=== PATIENT | female | born 1950 | race African-American/Black ===

== ENCOUNTER 2017-05-18 11:20 | Inpatient (IN) | payer MEDICARE, MEDICAID, OTHER ==
[~2017-05-18] VITALS: Ht 154.9 cm; Wt 73.9 kg
[~2017-05-18 11:20] MED LIST: ANUSOL HC1 SUPP RECTAL; ASPIR 8181 MG ORAL; ATROVENT HFA12.9 GM IH; COLACE100 MG ORAL; FLOVENT2 PUFF1 INH; FLUTICASONE PRO16 G1 NASAL; HYDROCHLOROTHIA25 MG ORAL; LANTUS SOL100 UNIT/1 SUBQ; LIDOCAINE15 GM TP; LORATADINE10 M1 PO; NAPROXEN375 MG ORAL; PANTOPRAZOLE SO40 MG ORAL; PAROXETINE HCL10 MG ORAL; TRAZODONE HCL150 MG ORAL; VALIUM10 MG ORAL; VENTOLIN HFA18 GM INH; ZANTAC150 MG ORAL
[2017-05-18 12:05] VITALS: BP 143/87
[2017-05-18 12:19] LABS: BASOPHILS % (AUTO) 1.1 % (0.0-2.0); EOSINOPHILS % (AUTO) 0.5 % (0.0-3.0); LYMPHOCYTES % (AUTO) 48.9 % (20.0-45.0); MEAN CORPUSCULAR HEMOGLOBIN 27.3 PG (27.0-31.0); MEAN CORPUSCULAR VOLUME 88 FL (80-99); MONOCYTES % (AUTO) 7.7 % (1.0-10.0); NEUTROPHILS % (AUTO) 41.8 % (45.0-75.0); PLATELET COUNT 363 K/UL (150-450); RED BLOOD COUNT 4.97 M/UL (4.20-5.40); RED CELL DISTRIBUTION WIDTH 13.8 % (11.6-14.8)
[2017-05-18] MEDS ORDERED: ALPRAZolam 0.5mg tab ORAL ONE (12:30)
[2017-05-18 12:34] LABS: TROPONIN I < 0.30 ng/mL (<=0.30)
[2017-05-18 12:37] LABS: ALANINE AMINOTRANSFERASE 7 U/L (3-33); ALBUMIN/GLOBULIN RATIO 1.2 (1.0-2.7); ANION GAP 9 (5-15); ASPARTATE AMINO TRANSFERASE 10 U/L (5-40); CALCIUM 9.7 mg/dL (8.6-10.2); CARBON DIOXIDE 30 mEQ/L (20-30); CHLORIDE 94 mEQ/L (98-107); CREATININE 0.8 mg/dL (0.5-0.9); GLOMERULAR FILTRATION RATE > 60 mL/min (>60); HEMOLYSIS 4; POTASSIUM 4.3 mEQ/L (3.4-4.9); SODIUM 133 mEQ/L (135-145); TOTAL PROTEIN 8.2 g/dL (6.6-8.7)
[2017-05-18] MEDS ORDERED: LORazepam Inj 2mg/ml 1ml IV ONE (12:45)
[2017-05-18 12:48] LABS: CKMB < 1.5 ng/mL (< 3.8)
--- NOTE | 2017-05-18 12:48 | Diagnostic Imaging Report ---
Indication: Right-sided facial numbness Technique: Contiguous 5 mm thick transaxial imaging of the head obtained in a Siemens Sensation [address] scanner. Soft tissue and bone windows generated. Total Dose length Product (DLP): [address] Dose Index Volume (CTDIvol): 70.38, 0.15 mGy Comparison: none Findings: There is mild prominence of the ventricles, basal cisterns, and cerebral sulci consistent with atrophy. Mild, nonspecific, white matter hypoattenuation is noted throughout the brain consistent with chronic small vessel disease. There is no midline shift, edema, acute hemorrhage, mass effect, or abnormal extra-axial fluid collections. Bones and extra osseous soft tissues are unremarkable. Impression: No acute intracranial bleed, mass effect or edema. Mild atrophy of the brain. Nonspecific white matter hypoattenuation probably due to chronic small vessel disease. The CT scanner at [facility] is accredited by the [employer] and the scans are performed using dose optimization techniques as appropriate to a performed exam including Automatic Exposure control.
[2017-05-18 14:10] VITALS: BP 147/84
--- NOTE | 2017-05-18 14:39 | Emergency Room Report ---
History of Present Illness General Chief Complaint: General Complaint Source: Patient, Medical Record Present Illness HPI 66-year-old female presents to ED for evaluation. States that she is having a facial droop on the left side the last 3 days. Patient has history of PTSD and believes that the facial droop could be due to her anxiety but states that it persisted longer than normal she came in today. Patient states that she also feels that her left arm is weak. Denies any chest pain or shortness of breath. Denies any headaches. No aggravating relieving factors. Denies any other associated symptoms Allergies: Coded Allergies: No Known Allergies (Unverified , 12/17/16) Patient History Past Medical History: DM, asthma, psych hx Past Surgical History: none Pertinent Family History: none Social History: Denies: smoking, alcohol use, drug use Now: No Immunizations: UTD Reviewed Nursing Documentation: PMH: Agreed, PSxH: Agreed Nursing Documentation-PMH Past Medical History: No History, Except For Hx Asthma: Yes Hx Diabetes: Yes History Of Psychiatric Problem: Yes - PTSD Review of Systems All Other Systems: negative except mentioned in HPI Physical Exam Vital Signs Date Time Temp Pulse Resp B/P (MAP) Pulse Ox O2 Delivery O2 Flow Rate FiO2 05/18/17 11:22 97.9 80 18 148/83 96 Room Air Sp02 EP Interpretation: reviewed, normal General Appearance: no apparent distress, alert, GCS 15, non-toxic Head: normocephalic, atraumatic Eyes: bilateral eye normal inspection, bilateral eye PERRL ENT: hearing grossly normal, normal pharynx, no angioedema, normal voice Neck: full range of motion, supple/symm/no masses Respiratory: chest non-tender, lungs clear, normal breath sounds, speaking full sentences Cardiovascular #1: regular rate, rhythm, no edema Cardiovascular #2: 2+ carotid (R), 2+ carotid (L), 2+ radial (R), 2+ radial (L) , 2+ dorsalis pedis (R), 2+ dorsalis pedis (L) Gastrointestinal: normal bowel sounds, non tender, soft, non-distended, no guarding, no rebound Rectal: deferred Genitourinary: normal inspection, no CVA tenderness Musculoskeletal: back normal, gait/station normal, normal range of motion, non- tender Neurologic: alert, oriented x3, responsive, motor strength/tone normal, sensory intact, speech normal, facial droop Psychiatric: judgement/insight normal, memory normal, no suicidal/homicidal ideation, anxious Reflexes: 3+ bicep (R), 3+ bicep (L), 3+ tricep (R), 3+ tricep (L), 3+ knee (R) , 3+ knee (L) Skin: normal color, no rash, warm/dry, well hydrated Lymphatic: no adenopathy Medical Decision Making Diagnostic Impression: Primary Impression: Stroke-like symptom Additional Impression: Facial droop ER Course Hospital Course 66-year-old female presents with facial droop, left arm weakness x3 days Differential diagnoses include: MN/unstable angina, SVT/Vtach/AFib, CVA/TIA Clinical course Patient placed on stretcher. on playground monitor. After initial history and physical I ordered labs, EKG, chest x-ray, and CT head labs reviewed- electrolytes ok, troponins negative, no leukocytosis, Hb/Hct stable EKG - NSR, no acute changes intperreted by me CT brain - no acute process noted Patient has been given Ativan without any resolution of symptoms. Given patient 's age and risk factors I believe patient should be admitted for further workup to rule out stroke Symptoms have been persisting for 3 days, therefore patient is out of any therapeutic window for thrombolytic therapy Given aspirin in ED. Case discussed with Dr. Mao and he agreed to accept the patient to his service for further care and support I. I feel this is a highly complex case requiring extensive working including EKG/Rhythm strip, Xray/CT/US, Blood/urine lab work, repeat exams while in ED, and administration of strong opiates/narcotics for pain control, admission to hospital or close patient follow up. Diagnosis - stroke like episode, facial droop admitted to telemetry in serious condition Labs Test 05/18/17 12:00 White Blood Count 7.0 K/UL (4.8-10.8) Red Blood Count 4.97 M/UL (4.20-5.40) Hemoglobin 13.6 G/DL (12.0-16.0) Hematocrit 43.9 % (37.0-47.0) Mean Corpuscular Volume 88 FL (80-99) Mean Corpuscular Hemoglobin 27.3 PG (27.0-31.0) Mean Corpuscular Hemoglobin Concent 31.0 G/DL (32.0-36.0) Red Cell Distribution Width 13.8 % (11.6-14.8) Platelet Count 363 K/UL (150-450) Mean Platelet Volume 5.0 FL (6.5-10.1) Neutrophils (%) (Auto) 41.8 % (45.0-75.0) Lymphocytes (%) (Auto) 48.9 % (20.0-45.0) Monocytes (%) (Auto) 7.7 % (1.0-10.0) Eosinophils (%) (Auto) 0.5 % (0.0-3.0) Basophils (%) (Auto) 1.1 % (0.0-2.0) Sodium Level 133 mEQ/L (135-145) Potassium Level 4.3 mEQ/L (3.4-4.9) Chloride Level 94 mEQ/L (98-107) Carbon Dioxide Level 30 mEQ/L (20-30) Anion Gap 9 (5-15) Blood Urea Nitrogen 7 mg/dL (7-23) Creatinine 0.8 mg/dL (0.5-0.9) Estimat Glomerular Filtration Rate > 60 mL/min (>60) Glucose Level 303 mg/dL (74-106) Calcium Level 9.7 mg/dL (8.6-10.2) Total Bilirubin 0.2 mg/dL (0.0-1.2) Aspartate Amino Transf (AST/SGOT) 10 U/L (5-40) Alanine Aminotransferase (ALT/SGPT) 7 U/L (3-33) Alkaline Phosphatase 80 U/L (35-104) Total Creatine Kinase 75 U/L (26-140) Creatine Kinase MB < 1.5 ng/mL (< 3.8) Creatine Kinase MB Relative Index 2.0 Troponin I < 0.30 ng/mL (<=0.30) Total Protein 8.2 g/dL (6.6-8.7) Albumin 4.5 g/dL (3.5-5.2) Globulin 3.7 g/dL Albumin/Globulin Ratio 1.2 (1.0-2.7) EKG Diagnostic Results Rate: normal Rhythm: NSR ST Segments: no acute changes ASA given to the pt in ED: No Rhythm Strip Diag. Results EP Interpretation: yes Rhythm: NSR, no PVC's, no ectopy CT/MRI/US Diagnostic Results CT/MRI/US Diagnostic Results : Imaging Test Ordered: CT Head Impression no acute process Last Vital Signs Date Time Temp Pulse Resp B/P (MAP) Pulse Ox O2 Delivery O2 Flow Rate FiO2 05/18/17 14:10 97.8 79 14 147/84 98 Room Air Status: improved Disposition: ADMITTED INPATIENT Condition: Serious Referrals: NON PHYSICIAN (PCP) AVNI KANG M.D. May 18, 2017 14:39
[2017-05-18 15:35] LABS: APPEARANCE,URINE CLEAR; KETONES,URINE NEGATIVE (NEGATIVE); LEUKOCYTE ESTERASE ,URINE NEGATIVE (NEGATIVE); NITRITE,URINE NEGATIVE (NEGATIVE); PH,URINE 6 (4.5-8.0); PROTEIN,URINE NEGATIVE (NEGATIVE); UROBILINOGEN,URINE NORMAL MG/DL (0.0-1.0)
--- NOTE | 2017-05-18 16:33 | History and Physical ---
History of Present Illness General Date patient seen: May 18, 2017 Time patient seen: 16:32 Reason for Hospitalization: facial droop Present Illness HPI 66yo female with pmh of DM2, HTN, PTSD, tobacco abuse presents with L facial droop. States that she is having a facial droop on the left side the last 3 days. Patient has history of PTSD and believes that the facial droop could be due to her anxiety but states that it persisted longer than normal she came in today. Patient states that she also feels that her left arm is weak. Denies f/c , n/v, d/c, chest pain, SOB, abd pain, dysuria, numbness/tingling. In ED, pt had CT head which was negative Allergies: Coded Allergies: No Known Allergies (Unverified , 12/17/16) Medication History Scheduled Albuterol Sulfate (Ventolin Hfa), 2 PUFFS INH EVERY 6 HOURS, (Reported) Aspirin* (Aspir 81*), 81 MG ORAL DAILY, (Reported) Docusate Sodium* (Colace*), 250 MG ORAL TWICE A DAY, (Reported) Fluticasone Propionate (Flovent Hfa), 1 PUFFS INH BID, (Reported) Fluticasone Propionate* (Fluticasone Propionate*), 1 SPRAY NASAL DAILY, ( Reported) Hydrochlorothiazide* (Hydrochlorothiazide*), 25 MG ORAL DAILY, (Reported) Insulin Glargine (Lantus), 10 SUBQ BEDTIME, (Reported) Loratadine (Loratadine), 10 MG PO daily, (Reported) Naproxen* (Naprosyn*), 375 MG ORAL TWICE A DAY, (Reported) Pantoprazole* (Pantoprazole*), 40 MG ORAL DAILY, (Reported) Paroxetine Hcl* (Paxil*), 30 MG ORAL hs, (Reported) Trazodone* (Trazodone*), 150 MG ORAL BEDTIME, (Reported) Scheduled PRN Diazepam* (Valium*), 10 MG ORAL bid PRN for ANXIETY, (Reported) Hydrocortisone (Anucort-Hc), 25 MG RECTAL QD PRN for Breakthrough Pain, ( Reported) Ipratropium [place] (Atrovent Hfa), 12.9 GM IH Q6H PRN for Bronchospasm, ( Reported) Patient History History Provided By: Patient, Medical Record Healthcare decision maker Resuscitation status Advanced Directive on File Family History Family History: CVA Social History Social History: (1) Tobacco abuse Review of Systems Constitutional: Reports: weakness Eye: Reports: no symptoms ENT: Reports: no symptoms Respiratory: Reports: no symptoms Cardiovascular: Reports: no symptoms Gastrointestinal: Reports: no symptoms Genitourinary: Reports: no symptoms Musculoskeletal: Reports: no symptoms Skin: Reports: no symptoms Psychiatric: Reports: no symptoms Endocrine: Reports: no symptoms Hematologic/Lymphatic: Reports: no symptoms Physical Exam Physical Exam Narrative General: alert, cooperative, no distress, appears stated age Head: normocephalic, without obvious abnormality, atraumatic Eyes: conjunctivae/corneas clear. PERRL, EOM's intact Throat: lips, mucosa, and tongue normal. MMM Neck: supple, symmetrical, trachea midline, and no JVD Lungs: clear to auscultation bilaterally Heart: regular rate and rhythm, S1, S2 normal, no murmur, click, rub or gallop Abdomen: soft, non-tender, non-distended, bowel sounds normal; no masses or organomegaly Extremities: extremities normal, atraumatic, no cyanosis or edema Pulses: 2+ and symmetric Skin: skin color, texture, turgor normal; no rashes or lesions Neurologic: grossly normal, no focal deficits Last 24 Hour Vital Signs Date Time Temp Pulse Resp B/P (MAP) Pulse Ox O2 Delivery O2 Flow Rate FiO2 05/18/17 14:10 97.8 79 14 147/84 98 Room Air 05/18/17 12:05 97.9 82 15 143/87 97 Room Air 05/18/17 11:22 97.9 80 18 148/83 96 Room Air Intake and Output 05/18/17 05/19/17 19:00 07:00 Intake Total 500 ml Balance 500 ml Intake IV Total 500 ml Laboratory Tests Test 05/18/17 12:00 05/18/17 15:07 White Blood Count 7.0 K/UL (4.8-10.8) Red Blood Count 4.97 M/UL (4.20-5.40) Hemoglobin 13.6 G/DL (12.0-16.0) Hematocrit 43.9 % (37.0-47.0) Mean Corpuscular Volume 88 FL (80-99) Mean Corpuscular Hemoglobin 27.3 PG (27.0-31.0) Mean Corpuscular Hemoglobin Concent 31.0 G/DL (32.0-36.0) L Red Cell Distribution Width 13.8 % (11.6-14.8) Platelet Count 363 K/UL (150-450) Mean Platelet Volume 5.0 FL (6.5-10.1) L Neutrophils (%) (Auto) 41.8 % (45.0-75.0) L Lymphocytes (%) (Auto) 48.9 % (20.0-45.0) H Monocytes (%) (Auto) 7.7 % (1.0-10.0) Eosinophils (%) (Auto) 0.5 % (0.0-3.0) Basophils (%) (Auto) 1.1 % (0.0-2.0) Sodium Level 133 mEQ/L (135-145) L Potassium Level 4.3 mEQ/L (3.4-4.9) Chloride Level 94 mEQ/L (98-107) L Carbon Dioxide Level 30 mEQ/L (20-30) Anion Gap 9 (5-15) Blood Urea Nitrogen 7 mg/dL (7-23) Creatinine 0.8 mg/dL (0.5-0.9) Estimat Glomerular Filtration Rate > 60 mL/min (>60) Glucose Level 303 mg/dL (74-106) H Calcium Level 9.7 mg/dL (8.6-10.2) Total Bilirubin 0.2 mg/dL (0.0-1.2) Aspartate Amino Transf (AST/SGOT) 10 U/L (5-40) Alanine Aminotransferase (ALT/SGPT) 7 U/L (3-33) Alkaline Phosphatase 80 U/L (35-104) Total Creatine Kinase 75 U/L (26-140) Creatine Kinase MB < 1.5 ng/mL (< 3.8) Creatine Kinase MB Relative Index 2.0 Troponin I < 0.30 ng/mL (<=0.30) Total Protein 8.2 g/dL (6.6-8.7) Albumin 4.5 g/dL (3.5-5.2) Globulin 3.7 g/dL Albumin/Globulin Ratio 1.2 (1.0-2.7) Urine Color Pale yellow Urine Appearance Clear Urine pH 6 (4.5-8.0) Urine Specific [place] 1.015 (1.005-1.035) Urine Protein Negative (NEGATIVE) Urine Glucose (UA) 4+ (NEGATIVE) H Urine Ketones Negative (NEGATIVE) Urine Occult Blood Negative (NEGATIVE) Urine Nitrite Negative (NEGATIVE) Urine Bilirubin Negative (NEGATIVE) Urine Urobilinogen Normal MG/DL (0.0-1.0) Urine Leukocyte Esterase Negative (NEGATIVE) Height (Feet): 5 Height (Inches): 1.00 Weight (Pounds): 163 Assessment/Plan Problem List: (1) Facial droop ICD Codes: R29.810 - Facial weakness SNOMED: 32376681 (2) DM2 (diabetes mellitus, type 2) ICD Codes: E11.9 - Type 2 diabetes mellitus without complications SNOMED: 45779906 (3) HTN (hypertension) ICD Codes: I10 - Essential (primary) hypertension SNOMED: 57643382 (4) PTSD (post-traumatic stress disorder) ICD Codes: F43.10 - Post-traumatic stress disorder, unspecified SNOMED: 59928721 (5) Tobacco abuse ICD Codes: Z72.0 - Tobacco use SNOMED: 85972073, 363230013 Status: stable Assessment/Plan Admit inpt Neurology consulted Check MRI brain Check A1C, lipid panel, TSH, B12/folate, Vit D ASA 325mg daily, Statin TITO Cont other home meds DVT Prophylaxis: SCD, HSQ Code Status: Full Hospital Classification Declaration: Based on this initial evaluation, and depending on the patient's clinical course, I anticipate that this patient will require hospitalization for 2-3 days for concern for CVA and close respiratory/ hemodynamic monitoring. Disposition: Once the patient is stable to leave the hospital, I anticipate the patient will likely be discharged to the following environment: home with HH vs SNF I spent 70 minutes on this patient's case, and 37 minutes were dedicated to counseling and/or care coordination. Discussed with patient/family, nursing staff, SW/STEVEN, neurology regarding clinical status, treatment course, and disposition planning. Time of note may not reflect time of encounter. Robbie Ng M.D. May 18, 2017 16:33
[2017-05-18 16:40] VITALS: BP 127/68
[2017-05-18] MEDS ORDERED: Acetaminophen 650 MG SUPP RECTAL PRN (17:00)
[2017-05-18] MEDS ORDERED: DuoNeb 0.5-3(2.5)mg/3ml neb HHN PRN (17:00)
[2017-05-18] MEDS ORDERED: Miralax 17gm pkt ORAL PRN (17:00)
[2017-05-18 17:41] VITALS: BP 132/64
[2017-05-18 18:17] VITALS: BP 136/90
[2017-05-18] MEDS: Flovent 44mcg Inhaler 10.6gm INH SCH (18:30)
--- NOTE | 2017-05-18 19:37 | Consultation ---
Consult Note Consult Note NEUROLOGY CONSULTATION: Full note dictated #[id number] 66 y/o, RH, BF with PH of HTN, DM, DL, PTSD, Anxiety, prior episodes of left face weakness associated with anxiety and responsive to ASA 81 mg. She has had a left facial droop for the last 3 days and thus presented [place] [facility]. A CT of the brain was benign. ON EXAM: Left NLF flattening. C/O subjective alteration of sensation over left V2 IMPRESSION: Left facial weakness and altered sensation - unexplained. REC: Agree with Brain MRI Carotid duplex W/U for possible CVD BP/BS/Lipid control ASA 81 mg q day. Rx of anxiety Observe Jane Leblanc M.D., M.S.P.H. JANE LEBLANC May 18, 2017 19:37
[2017-05-18 20:00] VITALS: BP 125/81
[2017-05-18] MEDS: LORazepam Inj 2mg/ml 1ml IV PRN (20:55)
[2017-05-18] MEDS: TraZODone 50mg tab ORAL SCH (20:57)
[2017-05-18] MEDS: PARoxetine 20mg tab ORAL SCH (20:58)
[2017-05-18] MEDS: Docusate 100mg cap ORAL SCH (20:58)
[2017-05-18] MEDS: Heparin 5000 units/ml inj SUBQ SCH (21:00)
[2017-05-18] MEDS: NovoLOG Insulin Flexpen SUBQ SCH (21:01)
[2017-05-19] VITALS: BP_SYST 117; BP_SYST 124; BP_DIAS 70; BP_DIAS 80
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
[2017-05-19 04:00] VITALS: BP 120/59
[2017-05-19] MEDS: NovoLOG Insulin Flexpen SUBQ SCH ×4 (06:19→21:19)
[2017-05-19 06:47] LABS: EOSINOPHILS % (AUTO) 1.7 % (0.0-3.0); LYMPHOCYTES % (AUTO) 51.9 % (20.0-45.0); MEAN CORPUSCULAR HEMOGLOBIN 29.1 PG (27.0-31.0); MEAN CORPUSCULAR HGB CONC 32.9 G/DL (32.0-36.0); MEAN CORPUSCULAR VOLUME 89 FL (80-99); MEAN PLATELET VOLUME 5.4 FL (6.5-10.1); MONOCYTES % (AUTO) 8.6 % (1.0-10.0); NEUTROPHILS % (AUTO) 36.8 % (45.0-75.0); PLATELET COUNT 331 K/UL (150-450); RED BLOOD COUNT 4.49 M/UL (4.20-5.40); RED CELL DISTRIBUTION WIDTH 13.8 % (11.6-14.8); WHITE BLOOD COUNT 6.5 K/UL (4.8-10.8)
[2017-05-19 06:58] LABS: HEMOGLOBIN A1C 9.2 % (< 6.0)
[2017-05-19 07:25] LABS: ANION GAP 11 (5-15); CALCIUM 9.3 mg/dL (8.6-10.2); CARBON DIOXIDE 28 mEQ/L (20-30); CHLORIDE 100 mEQ/L (98-107); CHOLESTEROL 222 mg/dL (< 200); CHOLESTEROL/HDL RATIO 4.9 (3.3-4.4); CREATININE 0.8 mg/dL (0.5-0.9); GLOMERULAR FILTRATION RATE > 60 mL/min (>60); HEMOLYSIS 4; LDL CHOLESTEROL (CALC.) 142 mg/dL (60-99); POTASSIUM 4.5 mEQ/L (3.4-4.9); SODIUM 139 mEQ/L (135-145)
[2017-05-19 07:50] VITALS: BP 127/84
[2017-05-19] MEDS ORDERED: Flonase Nasal Inhaler 16gm NASAL SCH (09:00)
[2017-05-19] MEDS: Docusate 100mg cap ORAL SCH ×2 (09:35→21:13)
[2017-05-19] MEDS: Aspirin EC 325mg tab ORAL SCH (09:35)
[2017-05-19] MEDS: Heparin 5000 units/ml inj SUBQ SCH ×2 (09:38→21:17)
--- NOTE | 2017-05-19 10:07 | Diagnostic Imaging Report ---
Indication: Left facial droop and weakness Technique: The head was imaged in a 1.5 Meredith magnet. Sequences obtained include sagittal and axial T1 FLAIR, axial T2 fast spin echo with fat saturation, axial T2 FLAIR, diffusion and ADC map. Comparison: None Findings: There is mild prominence of the sulci, ventricles, and basal cisterns consistent with atrophy. Mild, nonspecific T2 hyperintensity noted within white matter. This may be due to chronic small vessel disease. There is no restricted diffusion. Eric-white differentiation is normal. There is no mass effect, midline shift, edema, or hemorrhage. There are no abnormal extra-axial or intra-axial fluid collections. The corpus callosum and sella are unremarkable. The brainstem and cerebellum are unremarkable. Bone marrow signal within the visualized osseous structures appears age appropriate and unremarkable otherwise. Impression: No acute intracranial findings. Mild atrophy and evidence of chronic small vessel disease involving white matter tracts.
[2017-05-19] MEDS: Flovent 44mcg Inhaler 10.6gm INH SCH ×2 (11:48→19:20)
[2017-05-19 11:53] VITALS: BP 128/72
[2017-05-19] MEDS ORDERED: traMADol 50mg tab ORAL PRN (14:30)
[2017-05-19 16:06] VITALS: BP 115/72
[2017-05-19 20:00] VITALS: BP 121/78
[2017-05-19] MEDS ORDERED: Levemir Flexpen SUBQ SCH (21:00)
[2017-05-19] MEDS: PARoxetine 20mg tab ORAL SCH (21:13)
[2017-05-19] MEDS: Milk of Magnesia 30ml Ud ORAL PRN (21:13)
[2017-05-19] MEDS: TraZODone 50mg tab ORAL SCH (21:13)
--- NOTE | 2017-05-19 22:06 | General Progress Note ---
Assessment/Plan Problem List: (1) Facial droop ICD Codes: R29.810 - Facial weakness SNOMED: 50197681 (2) DM2 (diabetes mellitus, type 2) ICD Codes: E11.9 - Type 2 diabetes mellitus without complications SNOMED: 27442566 (3) HTN (hypertension) ICD Codes: I10 - Essential (primary) hypertension SNOMED: 42290764 (4) PTSD (post-traumatic stress disorder) ICD Codes: F43.10 - Post-traumatic stress disorder, unspecified SNOMED: 37240005 (5) Tobacco abuse ICD Codes: Z72.0 - Tobacco use SNOMED: 38960974, 526691026 Status: stable Assessment/Plan Neurology consulted F/u MRI brain F/u B12/folate, Vit D ASA 325mg daily, Statin TITO Cont other home meds PT/OT/ST Pain control, supportive care, bowel regimen DVT Prophylaxis: SCD, HSQ Code Status: Full Hospital Classification Declaration: Based on this initial evaluation, and depending on the patient's clinical course, I anticipate that this patient will require hospitalization for 2-3 days for concern for CVA and close respiratory/ hemodynamic monitoring. Disposition: Once the patient is stable to leave the hospital, I anticipate the patient will likely be discharged to the following environment: home with HH vs SNF I spent 42 minutes on this patient's case, and 24 minutes were dedicated to counseling and/or care coordination. Discussed with patient/family, nursing staff, SW/CM, neurology regarding clinical status, treatment course, and disposition planning. Time of note may not reflect time of encounter. Robbie Ng M.D. Subjective Date patient seen: May 19, 2017 Time patient seen: 12:00 ROS Limited/Unobtainable: No Constitutional: Reports: weakness HEENT: Reports: no symptoms Cardiovascular: Reports: no symptoms Respiratory: Reports: no symptoms Gastrointestinal/Abdominal: Reports: other - pain w/ swallowing Genitourinary: Reports: no symptoms Neurologic/Psychiatric: Reports: weakness Endocrine: Reports: no symptoms Hematologic/Lymphatic: Reports: no symptoms Allergies: Coded Allergies: No Known Allergies (Unverified , 12/17/16) Subjective No acute o/n events Pt doing well. Weakness improved. Facial droop still present. Ambulating. Denies f/c, n/v, d/c, chest pain, SOB Objective Last 24 Hour Vital Signs Date Time Temp Pulse Resp B/P (MAP) Pulse Ox O2 Delivery O2 Flow Rate FiO2 05/19/17 20:00 97.2 84 22 121/78 96 Room Air 05/19/17 19:29 79 18 96 Room Air 21 05/19/17 19:29 79 18 96 Room Air 05/19/17 16:06 98.2 79 20 115/72 97 Room Air 05/19/17 16:00 80 05/19/17 12:00 79 05/19/17 11:53 98.1 69 19 128/72 Room Air 05/19/17 11:46 78 18 96 Room Air 21 05/19/17 11:45 75 18 95 Room Air 21 05/19/17 08:00 87 05/19/17 07:50 97.9 76 18 127/84 96 Room Air 05/19/17 04:00 97.3 76 20 120/59 93 Room Air 05/19/17 04:00 80 05/19/17 00:01 81 05/19/17 00:00 98.1 76 20 124/80 98 Room Air Laboratory Tests 05/19/17 05:00: White Blood Count 6.5, Red Blood Count 4.49, Hemoglobin 13.1, Hematocrit 39.8, Mean Corpuscular Volume 89, Mean Corpuscular Hemoglobin 29.1, Mean Corpuscular Hemoglobin Concent 32.9, Red Cell Distribution Width 13.8, Platelet Count 331, Mean Platelet Volume 5.4L, Neutrophils (%) (Auto) 36.8L, Lymphocytes (%) (Auto) 51.9H, Monocytes (%) (Auto) 8.6, Eosinophils (%) (Auto) 1.7, Basophils (%) (Auto ) 1.0, Sodium Level 139, Potassium Level 4.5, Chloride Level 100, Carbon Dioxide Level 28, Anion Gap 11, Blood Urea Nitrogen 10, Creatinine 0.8, Estimat Glomerular Filtration Rate > 60, Glucose Level 252H, Hemoglobin A1c 9.2H, Calcium Level 9.3, Triglycerides Level 173H, Cholesterol Level 222H, LDL Cholesterol 142H, HDL Cholesterol 45, Cholesterol/HDL Ratio 4.9H, Thyroid Stimulating Hormone (TSH) 1.060 Height (Feet): 5 Height (Inches): 1.00 Weight (Pounds): 163 Objective General: alert, cooperative, no distress, appears stated age Head: normocephalic, without obvious abnormality, atraumatic Eyes: conjunctivae/corneas clear. PERRL, EOM's intact Throat: lips, mucosa, and tongue normal. MMM Neck: supple, symmetrical, trachea midline, and no JVD Lungs: clear to auscultation bilaterally Heart: regular rate and rhythm, S1, S2 normal, no murmur, click, rub or gallop Abdomen: soft, non-tender, non-distended, bowel sounds normal; no masses or organomegaly Extremities: extremities normal, atraumatic, no cyanosis or edema Pulses: 2+ and symmetric Skin: skin color, texture, turgor normal; no rashes or lesions Neurologic: grossly normal, no focal deficits except +facial droop Robbie Ng M.D. May 19, 2017 22:06
[2017-05-19] MEDS: LORazepam Inj 2mg/ml 1ml IV PRN (22:33)
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
[2017-05-20] VITALS: BP 117/70
[2017-05-20 04:00] VITALS: BP 129/76
[2017-05-20] MEDS: NovoLOG Insulin Flexpen SUBQ SCH ×2 (06:35→11:46)
[2017-05-20 08:00] VITALS: BP 142/91
[2017-05-20] MEDS: Docusate 100mg cap ORAL SCH (09:18)
[2017-05-20] MEDS: LORazepam Inj 2mg/ml 1ml IV PRN (09:18)
[2017-05-20] MEDS: Aspirin EC 325mg tab ORAL SCH (09:18)
[2017-05-20] MEDS: Heparin 5000 units/ml inj SUBQ SCH (09:19)
[2017-05-20] MEDS: Flovent 44mcg Inhaler 10.6gm INH SCH (09:23)
--- NOTE | 2017-05-20 09:38 | Diagnostic Imaging Report ---
APPROVED REPORT CPT Code: 98463 Vascular Symptoms CVA/TIA: Doppler Spectral Velocity Analysis RightLeft BILATERAL: CCA/BULB - Imaging reveals irregular, minimal plaque in both carotid bulbs. arteries. The Doppler spectral flow analysis is within normal limits throughout the internal and external carotid arteries. VERTEBRALS - Imaging reveals both vertebral arteries to be patent, without evidence of stenosis or steal. Note: Abnormally tortuous curved course of origin of the right and left internal carotid arteries.
--- NOTE | 2017-05-20 11:01 | Consultation ---
DATE OF CONSULTATION: 05/19/2017 CHIEF COMPLAINT: Constipation, gastroesophageal reflux disease, and abdominal pain. HISTORY OF PRESENT ILLNESS: This is a very pleasant 66-year-old female with past medical history of hypertension, diabetes, dyslipidemia, admitted to the hospital mostly for rule out stroke. The patient has complained of some heartburn, acid reflux disease, and constipation. Surgical consultation requested for evaluation. According to the patient, she has been having heartburn for many years. Sometimes food gets stuck in her throat, down in the middle of the chest. She has to drink water to push it through. No prior history of endoscopy. No hematemesis. No melena or hematochezia. Last colonoscopy was four years ago. According to the patient, everything was normal. PAST MEDICAL HISTORY: 1. Hypertension. 2. Diabetes. 3. Hypercholesterolemia. 4. Anxiety disorder. 5. Posttraumatic stress syndrome. PAST SURGICAL HISTORY: None. MEDICATIONS: Please see medication reconciliation list. ALLERGIES: No known allergies. SOCIAL HISTORY: The patient denies any alcohol usage. Denies any IV drug usage. Occasionally smokes. FAMILY HISTORY: Significant for breast cancer. Father had prostate cancer. REVIEW OF SYSTEMS: A 10-point review of system was performed and pertinent positives in history of present illness. PHYSICAL EXAMINATION: GENERAL: This is a well-developed female, in no acute distress. VITAL SIGNS: Temperature 97.9, pulse 72, respiratory rate 18, and blood pressure is 127/84. HEENT: Normocephalic and atraumatic. Sclerae anicteric. NECK: Supple. No lymphadenopathy. CARDIOVASCULAR: Regular rhythm. Plus S1 and S2. LUNGS: Decreased breath sounds bilaterally. ABDOMEN: Soft and nontender. No rebound. No guarding. No peritoneal sign. EXTREMITIES: No cyanosis. No clubbing. No edema. LABORATORY DATA: White count 6.5, hemoglobin 13, hematocrit 39, and platelet count is 331. Glucose is 252. Chem-7 grossly normal. ASSESSMENT AND PLAN: This is a 66-year-old female admitted to the hospital for rule out stroke. MRI is pending. She has been seen by neurologist. Gastrointestinal standpoint, the patient does not have any alarming sign and symptoms. No weight loss. No anemia. Given the question of recent stroke, we are going to hold off doing endoscopy at this time until the neurology workup is done. We are going to order a barium esophagram to further see any obvious stricture or any abnormality in the esophagus that explains patient's dysphagia symptoms. constipation, the patient is continued on Colace and MiraLAX and p.r.n. Dulcolax. We will monitor on daily basis and add lactulose if needed. I want to thank Dr. Tabares for this kind referral. Nino Christine M.D. DR: OSIEL JOB#: [id number] CC: Ace Tabares M.D.; Fax#: [phone]
[2017-05-20] MEDS: Milk of Magnesia 30ml Ud ORAL PRN (11:43)
--- NOTE | 2017-05-20 11:49 | General Progress Note ---
Assessment/Plan Problem List: (1) Tobacco abuse ICD Codes: Z72.0 - Tobacco use SNOMED: 57422503, 177855534 (2) HTN (hypertension) ICD Codes: I10 - Essential (primary) hypertension SNOMED: 58785594 (3) DM2 (diabetes mellitus, type 2) ICD Codes: E11.9 - Type 2 diabetes mellitus without complications SNOMED: 64111493 (4) PTSD (post-traumatic stress disorder) ICD Codes: F43.10 - Post-traumatic stress disorder, unspecified SNOMED: 33403662 (5) GERD (gastroesophageal reflux disease) ICD Codes: K21.9 - Gastro-esophageal reflux disease without esophagitis SNOMED: 328871978 (6) Constipation ICD Codes: K59.00 - Constipation, unspecified SNOMED: 16078624 Assessment/Plan ppi fu esophagogram needs out patient EGD Add amitiza Subjective ROS Limited/Unobtainable: Yes Allergies: Coded Allergies: No Known Allergies (Unverified , 12/17/16) Subjective small BM Objective Last 24 Hour Vital Signs Date Time Temp Pulse Resp B/P (MAP) Pulse Ox O2 Delivery O2 Flow Rate FiO2 05/20/17 08:00 97.2 80 21 142/91 96 Room Air 05/20/17 08:00 87 05/20/17 04:00 97.0 70 20 129/76 98 Room Air 05/20/17 04:00 86 05/20/17 00:00 97.9 72 20 117/70 93 Room Air 05/20/17 00:00 73 05/19/17 20:00 97.2 84 22 121/78 96 Room Air 05/19/17 20:00 68 05/19/17 19:29 79 18 96 Room Air 21 05/19/17 19:29 79 18 96 Room Air 05/19/17 16:06 98.2 79 20 115/72 97 Room Air 05/19/17 16:00 80 05/19/17 12:00 79 05/19/17 11:53 98.1 69 19 128/72 Room Air Laboratory Tests 05/20/17 06:30: Free Thyroxine 1.03 Height (Feet): 5 Height (Inches): 1.00 Weight (Pounds): 163 General Appearance: alert EENT: normal ENT inspection Neck: supple Cardiovascular: normal rate Respiratory/Chest: lungs clear Abdomen: normal bowel sounds, non tender, soft Extremities: non-tender TREVOR DAVEY May 20, 2017 11:49
[2017-05-20 12:00] VITALS: BP 134/81
[2017-05-20 12:21] LABS: APPEARANCE,URINE CLEAR; KETONES,URINE NEGATIVE (NEGATIVE); LEUKOCYTE ESTERASE ,URINE NEGATIVE (NEGATIVE); NITRITE,URINE NEGATIVE (NEGATIVE); PH,URINE 7 (4.5-8.0); PROTEIN,URINE NEGATIVE (NEGATIVE); UROBILINOGEN,URINE NORMAL MG/DL (0.0-1.0)
[2017-05-20] MEDS ORDERED: ATORVASTATIN CA40 MG ORAL (12:48)
[2017-05-20] MEDS ORDERED: ASPIR 8181 MG ORAL (12:48)
--- NOTE | 2017-05-20 12:49 | Discharge Summary ---
Discharge Summary Hospital Course Date of Admission May 18, 2017 at 13:42 Date of Discharge 05/20/17 Admitting Diagnosis CVA Reason for Hospitalization: concern for CVA HPI 66yo female with pmh of DM2, HTN, PTSD, tobacco abuse presents with L facial droop. States that she is having a facial droop on the left side the last 3 days. Patient has history of PTSD and believes that the facial droop could be due to her anxiety but states that it persisted longer than normal she came in today. Patient states that she also feels that her left arm is weak. Denies f/c , n/v, d/c, chest pain, SOB, abd pain, dysuria, numbness/tingling. In ED, pt had CT head which was negative Consultations Neurology, Gastroenterology Hospital Course Pt was admitted to tele. She was seen by neurology. She underwent MRI brain which showed no acute abnormality. Per neurology, the pt's history and neurological examination are most compatible with left nasolabial fold flattening and a subjective alteration of sensation over the left maxillary division of the trigeminal nerve. The problem was most probably pre-existing and made worse by her severe anxiety. Pt's facial droop slightly improved. She was seen by PT/OT and cleared for discharge home with home health. Discharge physical exam General: alert, cooperative, no distress, appears stated age Head: normocephalic, without obvious abnormality, atraumatic Eyes: conjunctivae/corneas clear. PERRL, EOM's intact Throat: lips, mucosa, and tongue normal. MMM Neck: supple, symmetrical, trachea midline, and no JVD Lungs: clear to auscultation bilaterally Heart: regular rate and rhythm, S1, S2 normal, no murmur, click, rub or gallop Abdomen: soft, non-tender, non-distended, bowel sounds normal; no masses or organomegaly Extremities: extremities normal, atraumatic, no cyanosis or edema Pulses: 2+ and symmetric Skin: skin color, texture, turgor normal; no rashes or lesions Neurologic: grossly normal, no focal deficits except for facial droop Discharge Medications New Medications: Atorvastatin Calcium* (Atorvastatin Calcium*) 40 Mg Tablet 40 MG ORAL BEDTIME for 30 Days, TAB Continued Medications: Albuterol Sulfate (Ventolin Hfa) 18 Gm Hfa.aer.ad 2 PUFFS INH EVERY 6 HOURS, #18 GM 0 Refills Aspirin* (Aspir 81*) 81 Mg Tablet. 81 MG ORAL DAILY, TAB Diazepam* (Valium*) 10 Mg Tablet 10 MG ORAL bid PRN for ANXIETY, #30 TAB 0 Refills Docusate Sodium* (Colace*) 100 Mg Capsule 250 MG ORAL TWICE A DAY, CAP Fluticasone Propionate (Flovent Hfa) 10.6 Gm Aer.w.adap 1 PUFFS INH BID, #1 EA 0 Refills Fluticasone Propionate* (Fluticasone Propionate*) 16 Gm Gibson.susp 1 SPRAY NASAL DAILY, EA Hydrochlorothiazide* (Hydrochlorothiazide*) 25 Mg Tablet 25 MG ORAL DAILY, TAB Hydrocortisone (Anucort-Hc) Y Supp 25 MG RECTAL QD PRN for Breakthrough Pain Insulin Glargine (Lantus) 100 Unit/1 Ml Insuln.pen 10 SUBQ BEDTIME, #1 EA 0 Refills Ipratropium [place] (Atrovent Hfa) 12.9 Gm Hfa.aer.ad 12.9 GM IH Q6H PRN for Bronchospasm Loratadine (Loratadine) 10 Mg Tab.rapdis 10 MG PO daily, TAB Naproxen* (Naprosyn*) 375 Mg Tablet 375 MG ORAL TWICE A DAY, #14 TAB 0 Refills Pantoprazole* (Pantoprazole*) 40 Mg Tablet. 40 MG ORAL DAILY, TAB Paroxetine Hcl* (Paxil*) 10 Mg Tablet 30 MG ORAL hs, #30 TAB 0 Refills Trazodone* (Trazodone*) 150 Mg Tablet 150 MG ORAL BEDTIME, TAB Discharge Condition Upon Discharge: stable Discharge Disposition Patient was discharged to home w/ home health Discharge Diagnoses: (1) Facial droop (2) HTN (hypertension) (3) DM2 (diabetes mellitus, type 2) (4) PTSD (post-traumatic stress disorder) (5) Constipation (6) GERD (gastroesophageal reflux disease) Robbie Ng M.D. May 20, 2017 12:49
[2017-05-20] MEDS ORDERED: BACTRIM DS TAB1 EAC1 ORAL (12:50)
--- NOTE | 2017-05-20 14:36 | Neurology Progress Note ---
Interim History Interim History Interim History Ms. Pope feels better today. She is less anxious. The left face feels better and is less numb and does not feel twisted. She denies any other new neurologic symptoms. Plans are to go home soon. Review of Systems Neuro Review of Systems Benign. Objective Physical Exam Last Vital Signs Date Time Temp Pulse Resp B/P (MAP) Pulse Ox O2 Delivery O2 Flow Rate FiO2 05/20/17 12:00 97.9 71 21 134/81 99 Room Air 05/19/17 19:29 21 Laboratory Tests Test 05/20/17 06:30 05/20/17 11:35 Free Thyroxine 1.03 ng/dL (0.86-1.85) Urine Color Pale yellow Urine Appearance Clear Urine pH 7 (4.5-8.0) Urine Specific Ransom 1.015 (1.005-1.035) Urine Protein Negative (NEGATIVE) Urine Glucose (UA) 4+ (NEGATIVE) H Urine Ketones Negative (NEGATIVE) Urine Occult Blood Negative (NEGATIVE) Urine Nitrite Negative (NEGATIVE) Urine Bilirubin Negative (NEGATIVE) Urine Urobilinogen Normal MG/DL (0.0-1.0) Urine Leukocyte Esterase Negative (NEGATIVE) Neurologic Exam Objective PHYSICAL EXAMINATION: GENERAL: She is a well-developed, well-nourished, pleasant black lady, lsitting up in bed in no acute distress. HEAD: Normocephalic and atraumatic. NECK: No neck rigidity was observed. EENT: Benign. NEUROLOGICAL EXAMINATION: MENTAL STATUS EXAMINATION: She was alert and awake. She was oriented to person, place, and time. She was able to recall 3/3 words immediately after 1 minute and after 3 minutes. She was able to remember presidents Trump through Faria senior with hints. Her mathematical skills were good. Her visuospatial function was preserved. SPEECH: She had no dysarthria. LANGUAGE: She had no aphasia. CRANIAL NERVE EXAMINATION: II: The visual reese were full to confrontation testing. III, IV & : The external ocular movements were full and the pupils 3 mm in diameter, equal, round, regular, and reactive to light. V: She had normal facial sensations and the temporales, masseters, and pterygoids functioned normally. She complained of a subjective alteration to light touch over the left maxillary division of the trigeminal nerve. VIII: She had flattening of the left nasolabial fold, however, both sides of the face move relatively well. VIII: She was able to hear well bilaterally and had no nystagmus. IX: The palate moved symmetrically on phonation. X: She had no hoarseness of voice. XI: The sternocleidomastoids and trapezii functioned normally. XII: The tongue was in the midline without any fasciculations or atrophy. MOTOR SYSTEM: The tone was normal in all four extremities. Examination of muscle mass revealed no focal wasting. Examination of power revealed grade 5/5 power in all muscle groups tested. SENSORY EXAMINATION: She had intact sensation to pinprick, light touch, and graphesthesia. COORDINATION: She performed well on finger to nose and heel to ortiz testing. REFLEXES: 2+ and bilaterally symmetrical at the biceps, triceps, brachioradialis , and knees. 0 at both ankles. The plantar responses were flexor bilaterally. STANCE: She stood up independently. GAIT: She walked well independently. Impression/Recommendations Diagnostic Impression 1. Ms. Lilliana Pope is a 66-year-old, right-handed, black lady, who does have a past history of hypertension, diabetes mellitus, dyslipidemia, posttraumatic stress disorder, anxiety, and prior episodes of left facial weakness associated with anxiety who for three days prior to admission had noticed an increased left facial droop. 2. The facial droop and numbness feels better today. She is also less anxious. 3. On neurological examination at this time, she does have some mild memory problems, altered sensation over the maxillary division of her left trigeminal nerve and left facial droop. 4. Laboratory data obtained thus far revealed a mild hyponatremia with sodium of 133, glucose elevated to 303, relatively normal CBC and a normal urinalysis. 5. CT scan of the brain without contrast is benign. 6. The MRI of the brain is also benign and reveals no acute pathology. 7. The patient's history and neurological examination are most compatible with left nasolabial fold flattening and a subjective alteration of sensation over the left maxillary division of the trigeminal nerve. The problem was most probably pre-existing and made worse by her severe anxiety. Acute intracranial pathology has been excluded.. Recommendations 1. Continue present management. 2. Her blood pressure, blood sugar, and lipids should be controlled strictly. 3. Her anxiety should be treated appropriately. 4. No further neurologic interventions needed. Jane Gray M.D., M.S.P.H. JANE GRAY May 20, 2017 14:36
[2017-05-20] MEDS ORDERED: Amitiza 24mcg cap ORAL SCH (18:00)
[2017-05-21 13:29] LABS: VITAMIN D 25-OH TOTAL 37 ng/mL (.)
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
[2017-06-03] MEDS ORDERED: BUPROPION XL300 MG ORAL (10:42)
--- NOTE | 2017-06-05 16:13 | Cardiology Report ---
APPROVED REPORT EKG Measurement Heart [id number] Normal sinus rhythm Possible Left atrial enlargement Borderline ECG
== END 2017-05-20 15:32 | disposition home health service (06) | DRG 93 ==
LOC: EMR 11:35 → 2E 13:42 → EDBEDREQ 17:13
DX: R29.810 Facial weakness (principal); I10 Essential (primary) hypertension; E11.9 Type 2 diabetes mellitus without complications; F43.10 Post-traumatic stress disorder, unspecified; Z72.0 Tobacco use; Z79.4 Long term (current) use of insulin; F41.9 Anxiety disorder, unspecified; E78.5 Hyperlipidemia, unspecified; Z87.891 Personal history of nicotine dependence; K59.00 Constipation, unspecified; K21.9 Gastro-esophageal reflux disease without esophagitis; R20.0 Anesthesia of skin
CPT/HCPCS: 36415; 70450; 70551; 80048; 80053; 80061; 81003; 82306; 82550; 82553; 82607; 82746; 82962; 83036; 84439; 84443; 84484; 85025; 85651; 86592; 93005; 93880; 94640; 99285; J1815; S5561

== ENCOUNTER 2018-07-24 12:19 | Inpatient (IN) | payer MEDICARE, OTHER ==
[~2018-07-24] VITALS: Ht 154.9 cm; Wt 73.9 kg
[~2018-07-24 12:19] MED LIST changes: +ATORVASTATIN CA40 MG ORAL; +BACTRIM DS TAB1 EAC1 ORAL; +BUPROPION XL300 MG ORAL; +CLOPIDOGREL75 MG ORAL; +DELTASONE20 MG PO; +HUMALOG JU100 UNIT/1 SQ; +METFORMIN HCL500 M1 ORAL; +PRAVASTATIN SOD20 M1 ORAL; +RANITIDINE HCL150 M2 PO; +SEROQUEL25 MG ORAL; +SYSTANE ULTRA 010 ML OP; +TRAMADOL HCL50 MG ORAL; +VALIUM5 MG ORAL; +WELLBUTRIN XL150 MG ORAL
[2018-07-24 12:52] VITALS: BP 127/82
[2018-07-24 12:55] VITALS: BP 130/68
[2018-07-24 13:00] VITALS: BP 129/83
[2018-07-24 13:05] VITALS: BP 115/73
[2018-07-24 13:40] LABS: BASOPHILS % (AUTO) 1.3 % (0.0-2.0); EOSINOPHILS % (AUTO) 0.3 % (0.0-3.0); HEMATOCRIT 37.7 % (37.0-47.0); HEMOGLOBIN 12.7 G/DL (12.0-16.0); MEAN CORPUSCULAR VOLUME 84 FL (80-99); MONOCYTES % (AUTO) 7.9 % (1.0-10.0); NEUTROPHILS % (AUTO) 42.6 % (45.0-75.0); PLATELET COUNT 342 K/UL (150-450); RED BLOOD COUNT 4.47 M/UL (4.20-5.40); RED CELL DISTRIBUTION WIDTH 13.6 % (11.6-14.8); WHITE BLOOD COUNT 7.1 K/UL (4.8-10.8)
[2018-07-24 13:50] LABS: ANION GAP 4 mmol/L (5-15); BLOOD UREA NITROGEN 7 mg/dL (7-18); CALCIUM 8.9 MG/DL (8.5-10.1); CARBON DIOXIDE 30 MMOL/L (21-32); CHLORIDE 101 MMOL/L (98-107); CREATININE 0.6 MG/DL (0.55-1.30); POTASSIUM 3.2 MMOL/L (3.5-5.1); SODIUM 135 MMOL/L (136-145)
[2018-07-24 13:58] LABS: APPEARANCE,URINE CLEAR; BILIRUBIN, URINE NEGATIVE (NEGATIVE); COLOR,URINE PALE YELLOW; GLUCOSE, URINE (UA) NEGATIVE (NEGATIVE); KETONES,URINE NEGATIVE (NEGATIVE); LEUKOCYTE ESTERASE ,URINE NEGATIVE (NEGATIVE); NITRITE,URINE NEGATIVE (NEGATIVE); PH,URINE 7 (4.5-8.0); PROTEIN,URINE NEGATIVE (NEGATIVE); UROBILINOGEN,URINE NORMAL MG/DL (0.0-1.0)
[2018-07-24 13:59] LABS: ALANINE AMINOTRANSFERASE 11 U/L (12-78); ALBUMIN 3.9 G/DL (3.4-5.0); ALBUMIN/GLOBULIN RATIO 0.9 (1.0-2.7); ALKALINE PHOSPHATASE 64 U/L (46-116); ASPARTATE AMINO TRANSFERASE 12 U/L (15-37); BILIRUBIN,TOTAL 0.3 MG/DL (0.2-1.0); CREATINE KINASE 93 U/L (26-308)
[2018-07-24] MEDS ORDERED: Ketorolac 30mg Inj IV ONE (14:00)
[2018-07-24] MEDS ORDERED: Morphine Sulfate 4mg/ml Inj (IV/IM USE ONLY) IVP ONE (14:15)
[2018-07-24 14:31] VITALS: BP 108/64
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
--- NOTE | 2018-07-24 14:50 | Diagnostic Imaging Report ---
Indication: Dyspnea Comparison: None A single view chest radiograph was obtained. Findings: No definite infiltrate or pulmonary vascular congestion identified. The heart is normal in size. The aorta is mildly enlarged consistent with atherosclerotic vascular disease. The bones are osteopenic. Impression: No acute disease
--- NOTE | 2018-07-24 16:23 | History and Physical ---
History of Present Illness General Date patient seen: Jul 24, 2018 Time patient seen: 16:00 Reason for Hospitalization: Dizziness Present Illness HPI 68 yo F PMH Asthma, PTSD, bipolar, depression, DM, and HTN, was referred to the ED after stating in outpatient psych that she was feeling dizzy in the past month. Patient states that since they have changed her insulin regimen she feels dizzy. During these episode she has not checked her blood glucose or her BP. She say these episode usually occur when she goes from sitting to standing and she admits to inadequate PO intake. She is unable to list in detail her prior and current insulin regimen and medications but says she did not take insulin since yesterday morning and her glucose today is 73. Patient denies a sense of the room spinning, denies ringing in her ears, denies fevers, chills, earache, headache. Patient uses medical marijuana to keep her"calm." Allergies: Coded Allergies: No Known Allergies (Unverified , 12/17/16) Medication History Scheduled Albuterol Sulfate (Ventolin Hfa), 2 PUFFS INH EVERY 6 HOURS, (Reported) Aspirin* (Aspir 81*), 81 MG ORAL DAILY, (Reported) Bupropion Hcl* (Wellbutrin Xl*), 150 MG ORAL DAILY, (Reported) Clopidogrel* (Clopidogrel*), 75 MG ORAL DAILY, (Reported) Fluticasone Propionate (Flovent Hfa), 1 PUFFS INH BID, (Reported) Fluticasone Propionate* (Fluticasone Propionate*), 1 SPRAY NASAL DAILY, ( Reported) Hydrochlorothiazide* (Hydrochlorothiazide*), 25 MG ORAL DAILY, (Reported) Insulin Glargine (Lantus), 6 SUBQ tid, (Reported) Metformin Hcl* (Metformin Hcl*), 500 MG ORAL TWICE A DAY, (Reported) Pantoprazole* (Pantoprazole*), 40 MG ORAL DAILY, (Reported) Paroxetine Hcl* (Paxil*), 30 MG ORAL am, (Reported) Pravastatin Sod* (Pravastatin Sod*), 20 MG ORAL BEDTIME, (Reported) Propylene Glycol/Peg 400 (Systane Ultra 0.4-0.3% Eye Drp), 1 ML OP Q4H, ( Reported) Ranitidine HCl (Ranitidine HCl), 150 MG PO bid, (Reported) Trazodone* (Trazodone*), 150 MG ORAL BEDTIME, (Reported) Scheduled PRN Diazepam* (Valium*), 10 MG ORAL daily PRN for ANXIETY, (Reported) Ipratropium [place] (Atrovent Hfa), 12.9 GM IH Q6H PRN for Bronchospasm, ( Reported) Patient History Healthcare decision maker GITA KENNEDY Resuscitation status Full Code Advanced Directive on File No Past Medical/Surgical History Past Medical/Surgical History: (1) HTN (hypertension) (2) PTSD (post-traumatic stress disorder) (3) DM2 (diabetes mellitus, type 2) Family History Family History: CVA Social History Social History: (1) Marijuana smoker (2) Tobacco abuse Review of Systems All Other Systems: negative except mentioned in HPI ROS Narrative aside from HPI, ROS are negative including more than 12 systems Physical Exam General Appearance: WD/WN, no apparent distress, alert Lines, tubes and drains: peripheral HEENT: normocephalic, atraumatic, anicteric, mucous membranes moist, PERRL Neck: non-tender, normal alignment, supple, normal inspection, abnormal alignment, limited range of motion Respiratory/Chest: chest wall non-tender, lungs clear, normal breath sounds, no respiratory distress, no accessory muscle use, respiratory distress Breasts: no masses Cardiovascular/Chest: normal peripheral pulses, normal rate, regular rhythm, regularly irregular Abdomen: normal bowel sounds, non tender, soft, no organomegaly, no mass Extremities: normal range of motion, non-tender, normal inspection, no calf tenderness, normal capillary refill Skin Exam: normal pigmentation, warm/dry Neurologic: plumber II-XII grossly normal, no motor/sensory deficits, abnormal gait , responsive, normal mood/affect Last 24 Hour Vital Signs Date Time Temp Pulse Resp B/P (MAP) Pulse Ox O2 Delivery O2 Flow Rate FiO2 07/24/18 15:35 Room Air 07/24/18 14:31 98.4 66 18 108/64 99 Room Air 07/24/18 13:05 81 115/73 07/24/18 13:00 73 129/83 07/24/18 12:55 71 130/68 07/24/18 12:52 98.0 73 20 127/82 100 Room Air 07/24/18 12:52 73 20 Room Air 07/24/18 12:23 98.4 83 18 118/77 96 Room Air Laboratory Tests Test 07/24/18 13:15 White Blood Count 7.1 K/UL (4.8-10.8) Red Blood Count 4.47 M/UL (4.20-5.40) Hemoglobin 12.7 G/DL (12.0-16.0) Hematocrit 37.7 % (37.0-47.0) Mean Corpuscular Volume 84 FL (80-99) Mean Corpuscular Hemoglobin 28.5 PG (27.0-31.0) Mean Corpuscular Hemoglobin Concent 33.7 G/DL (32.0-36.0) Red Cell Distribution Width 13.6 % (11.6-14.8) Platelet Count 342 K/UL (150-450) Mean Platelet Volume 4.9 FL (6.5-10.1) L Neutrophils (%) (Auto) 42.6 % (45.0-75.0) L Lymphocytes (%) (Auto) 48.0 % (20.0-45.0) H Monocytes (%) (Auto) 7.9 % (1.0-10.0) Eosinophils (%) (Auto) 0.3 % (0.0-3.0) Basophils (%) (Auto) 1.3 % (0.0-2.0) Erythrocyte Sedimentation Rate 23 MM/HR (0-30) Prothrombin Time 10.6 SEC (9.30-11.50) Prothromb Time International Ratio 1.0 (0.9-1.1) Activated Partial Thromboplast Time 25 SEC (23-33) Urine Color Pale yellow Urine Appearance Clear Urine pH 7 (4.5-8.0) Urine Specific [place] 1.005 (1.005-1.035) Urine Protein Negative (NEGATIVE) Urine Glucose (UA) Negative (NEGATIVE) Urine Ketones Negative (NEGATIVE) Urine Blood Negative (NEGATIVE) Urine Nitrite Negative (NEGATIVE) Urine Bilirubin Negative (NEGATIVE) Urine Urobilinogen Normal MG/DL (0.0-1.0) Urine Leukocyte Esterase Negative (NEGATIVE) Sodium Level 135 MMOL/L (136-145) L Potassium Level 3.2 MMOL/L (3.5-5.1) L Chloride Level 101 MMOL/L (98-107) Carbon Dioxide Level 30 MMOL/L (21-32) Anion Gap 4 mmol/L (5-15) L Blood Urea Nitrogen 7 mg/dL (7-18) Creatinine 0.6 MG/DL (0.55-1.30) Estimat Glomerular Filtration Rate > 60 mL/min (>60) Glucose Level 73 MG/DL (74-106) L Calcium Level 8.9 MG/DL (8.5-10.1) Total Bilirubin 0.3 MG/DL (0.2-1.0) Aspartate Amino Transf (AST/SGOT) 12 U/L (15-37) L Alanine Aminotransferase (ALT/SGPT) 11 U/L (12-78) L Alkaline Phosphatase 64 U/L (46-116) Total Creatine Kinase 93 U/L (26-308) Troponin I 0.000 ng/mL (0.000-0.056) Pro-B-Type Natriuretic Peptide 26 pg/mL (0-125) Total Protein 8.4 G/DL (6.4-8.2) H Albumin 3.9 G/DL (3.4-5.0) Globulin 4.5 g/dL Albumin/Globulin Ratio 0.9 (1.0-2.7) L Thyroid Stimulating Hormone (TSH) 2.628 uiU/mL (0.358-3.740) Urine Opiates Screen Negative (NEGATIVE) Urine Barbiturates Screen Negative (NEGATIVE) Phencyclidine (PCP) Screen Negative (NEGATIVE) Urine Amphetamines Screen Negative (NEGATIVE) Urine Benzodiazepines Screen Positive (NEGATIVE) H Urine Cocaine Screen Negative (NEGATIVE) Urine Marijuana (THC) Screen Positive (NEGATIVE) H Height (Feet): 5 Height (Inches): 1.00 Weight (Pounds): 163 Medications Current Medications Medications (Trade) Dose Ordered Sig/Georgina Route PRN Reason Start Time Stop Time Status Last Admin Dose Admin Acetaminophen (Tylenol) 650 mg Q4H PRN ORAL Mild Pain (Pain Scale 1-3) 07/24/18 16:15 08/23/18 16:14 UNV Acetaminophen (Tylenol) 650 mg Q4H PRN ORAL fever 07/24/18 16:15 08/23/18 16:14 UNV Aspirin (ASA) 81 mg DAILY ORAL 07/25/18 09:00 08/24/18 08:59 UNV Bupropion HCl (Wellbutrin XL) 150 mg ONCE ONCE ORAL 07/25/18 09:00 07/25/18 09:01 UNV Dextrose (Dextrose 50%) 25 ml Q30M PRN IV Hypoglycemia 07/24/18 16:15 08/23/18 16:14 UNV Dextrose (Dextrose 50%) 50 ml Q30M PRN IV Hypoglycemia 07/24/18 16:15 08/23/18 16:14 UNV Heparin Sodium (Porcine) (Heparin 5000 units/ml) 5,000 units EVERY 12 HOURS SUBQ 07/24/18 21:00 08/23/18 20:59 UNV Pantoprazole (Protonix) 40 mg DAILY ORAL 07/25/18 09:00 08/24/18 08:59 UNV Paroxetine HCl (Paxil) 10 mg DAILY ORAL 07/25/18 09:00 08/24/18 08:59 UNV Sodium Chloride 1,000 ml @ 100 mls/hr Q10H IVLG 07/24/18 17:06 08/23/18 17:05 UNV Trazodone HCl (Desyrel) 100 mg BEDTIME ORAL 07/24/18 21:00 08/23/18 20:59 UNV Assessment/Plan Problem List: (1) Dizziness ICD Codes: R42 - Dizziness and giddiness SNOMED: 893196977, 731678927 (2) HTN (hypertension) ICD Codes: I10 - Essential (primary) hypertension SNOMED: 48304957 (3) PTSD (post-traumatic stress disorder) ICD Codes: F43.10 - Post-traumatic stress disorder, unspecified SNOMED: 26457440 (4) DM2 (diabetes mellitus, type 2) ICD Codes: E11.9 - Type 2 diabetes mellitus without complications SNOMED: 54762637 (5) Marijuana smoker ICD Codes: F12.90 - Cannabis use, unspecified, uncomplicated SNOMED: 06308200 (6) Tobacco abuse ICD Codes: Z72.0 - Tobacco use SNOMED: 75117670, 007461596 (7) Major depression ICD Codes: F32.9 - Major depressive disorder, single episode, unspecified SNOMED: 847445798, 019023585 Assessment/Plan Dizziness likely 2/2 orthostatic hypotension vs polypharmacy vs hypoglycemia - IVF - monitor glucose - tele - ekg - troponin - psyche consult - check orthostatics Dm - check hgb a1c - hold insulin for now HTN - hold medication for now, patient is normotensive Major depression/ PTSD/Bipolar - pscyhe consult - continue home meds - decreased trzodone 150 to 100 PT eval Code status - full DVT proph- heparin Ramonita Galeano DO Jul 24, 2018 16:23
[2018-07-24 20:00] VITALS: BP 133/82
[2018-07-24] MEDS: Methocarbamol 500mg tab ORAL PRN (20:19)
[2018-07-24] MEDS: Heparin 5000 units/ml inj SUBQ SCH (20:21)
[2018-07-24] MEDS ORDERED: TraZODone 100mg tab ORAL SCH (21:00)
[2018-07-25] VITALS: BP 143/85
[2018-07-25] MEDS: Methocarbamol 500mg tab ORAL PRN (03:25)
[2018-07-25 04:00] VITALS: BP 136/83
[2018-07-25 07:15] LABS: ANION GAP 9 mmol/L (5-15); BLOOD UREA NITROGEN 12 mg/dL (7-18); CALCIUM 8.6 MG/DL (8.5-10.1); CARBON DIOXIDE 26 MMOL/L (21-32); CHLORIDE 108 MMOL/L (98-107); CHOLESTEROL 173 MG/DL (< 200); CREATININE 0.7 MG/DL (0.55-1.30); HDL CHOLESTEROL 39 MG/DL (40-60); SODIUM 142 MMOL/L (136-145); TRIGLYCERIDES 188 MG/DL (30-150)
[2018-07-25 07:16] LABS: BASOPHILS % (AUTO) 1.6 % (0.0-2.0); EOSINOPHILS % (AUTO) 1.2 % (0.0-3.0); HEMATOCRIT 37.6 % (37.0-47.0); HEMOGLOBIN 12.4 G/DL (12.0-16.0); LYMPHOCYTES % (AUTO) 43.4 % (20.0-45.0); MEAN CORPUSCULAR VOLUME 84 FL (80-99); NEUTROPHILS % (AUTO) 47.8 % (45.0-75.0); PLATELET COUNT 345 K/UL (150-450); RED BLOOD COUNT 4.46 M/UL (4.20-5.40); RED CELL DISTRIBUTION WIDTH 13.9 % (11.6-14.8); WHITE BLOOD COUNT 6.7 K/UL (4.8-10.8)
[2018-07-25 08:00] VITALS: BP 148/87
[2018-07-25] MEDS: Heparin 5000 units/ml inj SUBQ SCH (08:54)
[2018-07-25] MEDS ORDERED: Aspirin Baby 81mg ORAL SCH (09:00)
[2018-07-25] MEDS ORDERED: BuPROPion XL 150mg tab ORAL SCH (09:00)
[2018-07-25] MEDS ORDERED: PARoxetine 10mg tab ORAL SCH (09:00)
--- NOTE | 2018-07-25 09:50 | General Progress Note ---
Assessment/Plan Problem List: (1) Dizziness ICD Codes: R42 - Dizziness and giddiness SNOMED: 058355056, 967429220 (2) HTN (hypertension) ICD Codes: I10 - Essential (primary) hypertension SNOMED: 88245223 (3) PTSD (post-traumatic stress disorder) ICD Codes: F43.10 - Post-traumatic stress disorder, unspecified SNOMED: 51694324 (4) DM2 (diabetes mellitus, type 2) ICD Codes: E11.9 - Type 2 diabetes mellitus without complications SNOMED: 39598144 (5) Marijuana smoker ICD Codes: F12.90 - Cannabis use, unspecified, uncomplicated SNOMED: 51312631 (6) Tobacco abuse ICD Codes: Z72.0 - Tobacco use SNOMED: 14839113, 478046120 (7) Major depression ICD Codes: F32.9 - Major depressive disorder, single episode, unspecified SNOMED: 312321711, 257153247 Assessment/Plan Dizziness - IVF - monitor glucose - tele - ekg - troponin - psyche consult - check orthostatics - f/u CT head - 2D echo Dm - check hgb / - levemir and ISS while in house HTN - hold medication for now, patient is normotensive Major depression/ PTSD/Bipolar - pscyhe consult - continue home meds - decreased trzodone 150 to 100 PT eval Code status - full DVT proph- heparin Subjective Date patient seen: Jul 25, 2018 Time patient seen: 08:30 ROS Limited/Unobtainable: No Allergies: Coded Allergies: No Known Allergies (Unverified , 12/17/16) Subjective Patient not currently dizzy, but does experience dizziness on standing. No other complaints. Denies ringing in the ear, headache and changes in vision. Objective Last 24 Hour Vital Signs Date Time Temp Pulse Resp B/P (MAP) Pulse Ox O2 Delivery O2 Flow Rate FiO2 07/25/18 04:00 98.1 66 18 136/83 (100) 97 07/25/18 04:00 70 07/25/18 00:00 98.0 78 18 143/85 (104) 100 07/25/18 00:00 70 07/24/18 21:00 Room Air 07/24/18 20:00 66 07/24/18 20:00 97.7 67 17 133/82 (99) 96 07/24/18 16:00 73 11/5/18 15:35 Room Air 07/24/18 15:00 98.4 66 18 108/64 99 Room Air 07/24/18 14:31 98.4 66 18 108/64 99 Room Air 07/24/18 13:05 81 115/73 07/24/18 13:00 73 129/83 07/24/18 12:55 71 130/68 07/24/18 12:52 98.0 73 20 127/82 100 Room Air 07/24/18 12:52 73 20 Room Air 07/24/18 12:23 98.4 83 18 118/77 96 Room Air Intake and Output 07/24/18 07/25/18 19:00 07:00 Intake Total 360 ml 900 ml Output Total 0 ml Balance 360 ml 900 ml Intake Oral 360 ml IV Total 900 ml Output Urine Total 0 ml # Voids 2 Laboratory Tests 07/24/18 13:15: White Blood Count 7.1, Red Blood Count 4.47, Hemoglobin 12.7, Hematocrit 37.7, Mean Corpuscular Volume 84, Mean Corpuscular Hemoglobin 28.5, Mean Corpuscular Hemoglobin Concent 33.7, Red Cell Distribution Width 13.6, Platelet Count 342, Mean Platelet Volume 4.9L, Neutrophils (%) (Auto) 42.6L, Lymphocytes (%) (Auto) 48.0H, Monocytes (%) (Auto) 7.9, Eosinophils (%) (Auto) 0.3, Basophils (%) (Auto ) 1.3, Erythrocyte Sedimentation Rate 23, Prothrombin Time 10.6, Prothromb Time International Ratio 1.0, Activated Partial Thromboplast Time 25, Urine Color Pale yellow, Urine Appearance Clear, Urine pH 7, Urine Specific [place] 1.005, Urine Protein Negative, Urine Glucose (UA) Negative, Urine Ketones Negative, Urine Blood Negative, Urine Nitrite Negative, Urine Bilirubin Negative, Urine Urobilinogen Normal, Urine Leukocyte Esterase Negative, Sodium Level 135L, Potassium Level 3.2L, Chloride Level 101, Carbon Dioxide Level 30, Anion Gap 4L , Blood Urea Nitrogen 7, Creatinine 0.6, Estimat Glomerular Filtration Rate > 60 , Glucose Level 73L, Calcium Level 8.9, Total Bilirubin 0.3, Aspartate Amino Transf (AST/SGOT) 12L, Alanine Aminotransferase (ALT/SGPT) 11L, Alkaline Phosphatase 64, Total Creatine Kinase 93, Troponin I 0.000, Pro-B-Type Natriuretic Peptide 26, Total Protein 8.4H, Albumin 3.9, Globulin 4.5, Albumin/ Globulin Ratio 0.9L, Thyroid Stimulating Hormone (TSH) 2.628, Urine Opiates Screen Negative, Urine Barbiturates Screen Negative, Phencyclidine (PCP) Screen Negative, Urine Amphetamines Screen Negative, Urine Benzodiazepines Screen PositiveH, Urine Cocaine Screen Negative, Urine Marijuana (THC) Screen PositiveH 07/24/18 17:25: Hemoglobin A1c 6.9H 07/25/18 05:20: White Blood Count 6.7, Red Blood Count 4.46, Hemoglobin 12.4, Hematocrit 37.6, Mean Corpuscular Volume 84, Mean Corpuscular Hemoglobin 27.8, Mean Corpuscular Hemoglobin Concent 32.9, Red Cell Distribution Width 13.9, Platelet Count 345, Mean Platelet Volume 4.8L, Neutrophils (%) (Auto) 47.8, Lymphocytes (%) (Auto) 43.4, Monocytes (%) (Auto) 6.0, Eosinophils (%) (Auto) 1.2, Basophils (%) (Auto ) 1.6, Sodium Level 142, Potassium Level 4.0, Chloride Level 108H, Carbon Dioxide Level 26, Anion Gap 9, Blood Urea Nitrogen 12, Creatinine 0.7, Estimat Glomerular Filtration Rate > 60, Glucose Level 178#H, Calcium Level 8.6, Magnesium Level 1.9, Triglycerides Level 188H, Cholesterol Level 173, LDL Cholesterol 115H, HDL Cholesterol 39L, Cholesterol/HDL Ratio 4.4 Height (Feet): 5 Height (Inches): 1.00 Weight (Pounds): 163 General Appearance: WD/WN, no apparent distress, alert, lethargic, confused, mild distress EENT: PERRL/EOMI, normal ENT inspection, TMs normal, pharynx normal Neck: non-tender, normal alignment, normal inspection, abnormal alignment Cardiovascular: normal peripheral pulses, normal rate, regular rhythm, regularly irregular, no gallop/murmur, no JVD Respiratory/Chest: chest wall non-tender, lungs clear, normal breath sounds, no respiratory distress, no accessory muscle use Abdomen: normal bowel sounds, non tender, soft, no organomegaly, no mass, abnormal bowel sounds Extremities: normal range of motion, non-tender, normal inspection Edema: no edema noted Arm (L), no edema noted Arm (R), no edema noted Leg (L), no edema noted Leg (R), no edema noted Pedal (L), no edema noted Pedal (R), no edema noted Generalized 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
--- NOTE | 2018-07-25 09:57 | Diagnostic Imaging Report ---
Indication: Syncope Technique: Contiguous 5 mm thick transaxial imaging of the head obtained in a Siemens Sensation [address] scanner. Soft tissue and bone windows generated. Automatic Exposure Control was utilized. Total Dose length Product (DLP): [address] Dose Index Volume (CTDIvol): 0.15, 70.38 mGy Comparison: 05/18/2017 Findings: There is mild prominence of the ventricles, basal cisterns, and cerebral sulci consistent with atrophy. Mild, nonspecific, white matter hypoattenuation is noted throughout the brain consistent with chronic small vessel disease. There is no midline shift, edema, acute hemorrhage, mass effect, or abnormal extra-axial fluid collections. Bones and extra osseous soft tissues are unremarkable. Impression: No acute intracranial bleed, mass effect or edema. Mild atrophy of the brain. Nonspecific white matter hypoattenuation probably due to chronic small vessel disease. The CT scanner at [facility] is accredited by the [employer] and the scans are performed using dose optimization techniques as appropriate to a performed exam including Automatic Exposure control.
[2018-07-25] MEDS ORDERED: TRAZODONE HCL100 MG ORAL (11:05)
[2018-07-25] MEDS ORDERED: LIPITOR40 MG ORAL (11:05)
--- NOTE | 2018-07-25 11:07 | Discharge Instructions ---
Discharge Instructions Discharge Instructions Follow up with: neurology outpatient and primary doctor Diet: other - diabetic diet Activity: resume normal activities Special Instructions your CT head is negative Please follow up with a neurologist outpatient, you need and MRI as well to evaluate any abnormalities that are causing your dizziness. Please also drink plenty of water and see your primary doctor to review your medications. For Congestive Heart Failure Reminder Report to your physician any weight gain of 5 pounds or more in one week. Ramonita Galeano DO Jul 25, 2018 11:07
[2018-07-25] MEDS ORDERED: NovoLOG Insulin Flexpen SUBQ SCH ×2 (11:30→11:50)
[2018-07-25 12:00] VITALS: BP 158/86
--- NOTE | 2018-07-25 16:20 | Cardiology Report ---
APPROVED REPORT EXAM: Two-dimensional and M-mode echocardiogram with Doppler and color Doppler. INDICATION Dizziness and Vertigo M-Mode DIMENSIONS IVSd0.9 (0.7-1.1cm)Left Atrium (MM)2.5 (1.6-4.0cm) LVDd1.2 (3.5-5.6cm)Aortic Root3.3 (2.0-3.7cm) PWd5.2 (0.7-1.1cm)Aortic Cusp Exc.1.9 (1.5-2.0cm) IVSs3.7 cm LVDs1.0 (2.5-4.0cm) PWs1.1 cm Normal left ventricular chamber size, systolic function and wall motion. Left ventricular ejection fraction estimated to be 60-65 %. No evidence of left ventricular hypertrophy. Anterior Echo-free space, may be due to pericardial fat or effusion. Left atrial size at upper limits of normal. Right cardiac chamber sizes are within normal limits. Focal aortic valve sclerosis with adequate cusp excursion. Thickened mitral valve leaflets with normal excursion. Mitral annulus and aortic root calcification. Pulmonic valve not well visualized. Normal tricuspid valve structure. IVC dilated at 2.4 cm with slight physiologic collapse suggestive of increased RA pressure. A color flow and spectral Doppler study was performed and revealed: Trace aortic regurgitation. Mild mitral regurgitation. Mitral diastolic velocities suggest reduced left ventricular relaxation c/w mild LV diastolic dysfunction (Grade I). Trace to mild tricuspid regurgitation. Tricuspid systolic velocities suggests peak right ventricular systolic pressure of 25 mmHg. No pulmonic regurgitation present.
--- NOTE | 2018-07-25 16:41 | Cardiology Report ---
APPROVED REPORT EKG Measurement Heart [id number] Normal sinus rhythm Possible Left atrial enlargement Borderline ECG
--- NOTE | 2018-07-26 11:45 | Discharge Summary ---
Discharge Summary Hospital Course Date of Admission Jul 24, 2018 at 13:40 Date of Discharge Jul 25, 2018 at 13:10 Admitting Diagnosis NEAR SYNCOPE HPI Lilliana Pope is a 68 year old female who was admitted on Jul 24, 2018 at 13: 40 for Near Syncope Consultations Summary 68 yo F with PMH of DM, HTN was referred to the ED after a follow up visit in the behavioral unit for dizziness. Patient states that her dizziness began one month ago when her insulin regimen was changed but she does not follow her blood glucose to associate dizziness with hypoglycemia. patient also states the dizziness occurs when she goes from sitting to standing. She also admits to poor vision but states she wears glasses and there have been no acute changes. Otherwise in regards to history or physical she does not demonstrate any nystagmus or neurologic dysfunction. She was once observed to stagger backward after standing prior to being taken down for imaging. Head CT was normal (see results below). Patient BP and electrolytes noted to be normal as well. Hepatitis panel ordered but not completed. Tsh 2.628, B12 242, folate 11.8. Toxicology positive for benzo and THC. Echo nml (see report below). Patient was also found to have DLD with ASCVD score of 18 % and started on lipitor 40 mg qhs. Follow up testing: Patient requested discharge on last hospital stay but does require further outpatient workup for dizziness. I recommend a Brain MRI, hepatitis panel, HIV , RPR, and neurology follow up as well as follow up with PCP for appropriate reconciliation of patient meds to avoid hypoglycemia and polypharmacy. Imaging: Procedure: CT Head no Contrast Indication: Syncope Technique: Contiguous 5 mm thick transaxial imaging of the head obtained in a Siemens Sensation [address] scanner. Soft tissue and bone windows generated. Automatic Exposure Control was utilized. Total Dose length Product (DLP): [address] Dose Index Volume (CTDIvol): 0.15, 70.38 mGy Comparison: 05/18/2017 Findings: There is mild prominence of the ventricles, basal cisterns, and cerebral sulci consistent with atrophy. Mild, nonspecific, white matter hypoattenuation is noted throughout the brain consistent with chronic small vessel disease. There is no midline shift, edema, acute hemorrhage, mass effect, or abnormal extra-axial fluid collections. Bones and extra osseous soft tissues are unremarkable. Impression: No acute intracranial bleed, mass effect or edema. Mild atrophy of the brain. Nonspecific white matter hypoattenuation probably due to chronic small vessel disease. Procedure: 2DEchocardiogram w/Doppler APPROVED REPORT EXAM: Two-dimensional and M-mode echocardiogram with Doppler and color Doppler. INDICATION Dizziness and Vertigo M-Mode DIMENSIONS IVSd 0.9 (0.7-1.1cm) Left Atrium (MM) 2.5 (1.6-4.0cm) LVDd 1.2 (3.5-5.6cm) Aortic Root 3.3 (2.0-3.7cm) PWd 5.2 (0.7-1.1cm) Aortic Cusp Exc. 1.9 (1.5-2.0cm) IVSs 3.7 cm LVDs 1.0 (2.5-4.0cm) PWs 1.1 cm Normal left ventricular chamber size, systolic function and wall motion. Left ventricular ejection fraction estimated to be 60-65 %. No evidence of left ventricular hypertrophy. Anterior Echo-free space, may be due to pericardial fat or effusion. Left atrial size at upper limits of normal. Right cardiac chamber sizes are within normal limits. Focal aortic valve sclerosis with adequate cusp excursion. Thickened mitral valve leaflets with normal excursion. Mitral annulus and aortic root calcification. Pulmonic valve not well visualized. Normal tricuspid valve structure. IVC dilated at 2.4 cm with slight physiologic collapse suggestive of increased RA pressure. A color flow and spectral Doppler study was performed and revealed: Trace aortic regurgitation. Mild mitral regurgitation. Mitral diastolic velocities suggest reduced left ventricular relaxation c/w mild LV diastolic dysfunction (Grade I). Trace to mild tricuspid regurgitation. Tricuspid systolic velocities suggests peak right ventricular systolic pressure of 25 mmHg. No pulmonic regurgitation present. Discharge Medications: lipitor 40 mg daily trazodone 100 mg nightly asa 81 daily hctz 25 mg po daily metformin 500 mg po bid paxil 30 mg daily atrnadiat flovent I have spent 70 minutes regarding patient care. Hospital Course Dizziness - IVF - monitor glucose - tele - ekg - troponin - psyche consult - check orthostatics - f/u CT head - 2D echo Dm - check hgb 6/7 - levemir and ISS while in house HTN - hold medication for now, patient is normotensive Major depression/ PTSD/Bipolar - pscyhe consult - continue home meds - decreased trzodone 150 to 100 PT eval Code status - full DVT proph- heparin Discharge Discharge Disposition Patient was discharged to Home (01) Discharge Diagnoses: (1) Dizziness (2) Marijuana smoker (3) Tobacco abuse (4) DM2 (diabetes mellitus, type 2) (5) HTN (hypertension) (6) GERD (gastroesophageal reflux disease) (7) Major depression (8) PTSD (post-traumatic stress disorder) Discharge Instructions Discharge Instructions Follow up with: neurology outpatient and primary doctor Activity: resume normal activities Ramonita Galeano DO Jul 26, 2018 11:45
== END 2018-07-25 13:10 | disposition home or self-care (01) | DRG 149 ==
LOC: EMR 13:15 → 2E 13:40 → EDBEDREQ 14:08
DX: R42 Dizziness and giddiness (principal); F12.90 Cannabis use, unspecified, uncomplicated; F17.200 Nicotine dependence, unspecified, uncomplicated; E11.9 Type 2 diabetes mellitus without complications; I10 Essential (primary) hypertension; K21.9 Gastro-esophageal reflux disease without esophagitis; F43.10 Post-traumatic stress disorder, unspecified; Z79.4 Long term (current) use of insulin; I34.0 Nonrheumatic mitral (valve) insufficiency; I36.1 Nonrheumatic tricuspid (valve) insufficiency; F32.9 Major depressive disorder, single episode, unspecified
CPT/HCPCS: 36415; 70450; 71045; 80048; 80053; 80061; 80307; 81003; 82550; 82607; 82746; 82962; 83036; 83735; 83880; 84443; 84484; 85025; 85610; 85651; 85730; 93005; 93306; 96361; 96374; 96375; 99285; J1815; J8499